=== PATIENT | male | born 1990 | race Caucasian/White ===

== ENCOUNTER 2017-09-19 11:37 | Emergency (ER) | payer MEDICAID ==
[~2017-09-19] VITALS: Ht 182.9 cm; Wt 85.5 kg
[~2017-09-19 11:37] MED LIST: NO HOME MEDS
[2017-09-19 12:59] LABS: HEMATOCRIT 28.5 % (42.0-52.0); HEMOGLOBIN 8.8 g/dl (14.0-17.9); MEAN CORPUSCULAR HEMOGLOBIN 20.9 PG (27.0-31.0); MEAN CORPUSCULAR HGB CONC 30.9 % (33.0-36.5); MEAN CORPUSCULAR VOLUME 67.6 FL (78-98); MEAN PLATELET VOLUME 5.5 FL (7.4-10.4); PLATELET COUNT 459 X10'3 (140-440); RED BLOOD COUNT 4.22 X10'6 (4.70-6.10); RED CELL DISTRIBUTION WIDTH 20.5 % (11.5-14.5); WHITE BLOOD COUNT 6.6 X10'3 (4.5-11.0)
[2017-09-19 13:00] LABS: ALBUMIN 2.9 G/DL (3.4-5.0); ANION GAP 15 (8-16); BLOOD UREA NITROGEN 9 MG/DL (7-18); BUN/CREATININE RATIO 9.7 (5.4-32.0); CALCIUM 8.1 MG/DL (8.5-10.1); CHLORIDE 107 MMOL/L (99-107); CREATININE 0.93 MG/DL (0.60-1.10); GLUCOSE 85 MG/DL (70-104); SODIUM 144 MMOL/L (135-145); TOTAL CARBON DIOXIDE 22.4 MMOL/L (24-32); eGFR > 90 ML/MIN
[2017-09-19 13:05] VITALS: BP 132/75
[2017-09-19 13:07] LABS: ANISOCYTOSIS 2+; HYPOCHROMASIA 2+; MICROCYTOSIS 2+; PLATELET ESTIMATE INCREASED; TARGET CELLS FEW; TOTAL CELLS COUNTED 100
[2017-09-19 13:08] LABS: POLYCHROMASIA FEW
[2017-09-19 14:41] LABS: OCCULT BLOOD STOOL NEGATIVE (Neg)
== END 2017-09-19 13:43 | disposition home or self-care (01) ==
LOC: ER 11:37
DX: D64.9 Anemia, unspecified (principal); R11.10 Vomiting, unspecified; F15.90 Other stimulant use, unspecified, uncomplicated; Z59.0 Homelessness; Z98.890 Other specified postprocedural states
CPT/HCPCS: 36415; 80048; 82272; 85025; 99284